=== PATIENT | female | born 1980 | race Hispanic/Latino ===

== ENCOUNTER 2016-07-20 18:53 | Emergency (ER) | payer OTHER ==
[~2016-07-20 18:53] MED LIST: NAPROSYN 500 M500 MG PO; NORFLEX100 MG PO; ROBITUSSIN W/CO10 ML PO; ZITHROMAX Z-PA250 M1 PO
--- NOTE | 2016-07-20 20:21 | ED HEADACHE COMPLAINT ---
History of Present Illness General Chief Complaint: Headache Stated Complaint: "I HAVE A REALLY BAD HEADACHE" Source: patient Exam Limitations: no limitations Vital Signs & Intake/Output Vital Signs & Intake/Output Vital Signs Date Time Temp Pulse Resp B/P Pulse O2 O2 Flow FiO2 Ox Delivery Rate 07/20 2050 97.2 80 20 115/68 96 Room Air 07/21 1915 97.6 79 22 117/71 97 Room Air Allergies Coded Allergies: MDX - Sulfamethoxazole (From BACTRIM) (Intermediate, RASH 05/03/14) MDX - Trimethoprim (From BACTRIM) (Intermediate, RASH 05/03/14) MDX - Pseudoephedrine (From SUDAFED 12 HOUR) (Mild, RASH 12/31/12) MDX - PCN (penicillin) (PCN (PENICILLIN)) (RASH 11/07/11) Reconcile Medications Azithromycin (Zithromax Z-Lamonte) 250 MG CAP 1 DP PO AD . 2 the first day followed by 1 for days 2-5 Butalb/Acetaminophen/Caffeine (Fioricet 50-300-40 MG Capsule) 50 MG-300 MG-40 MG CAPSULE 1 TAB PO TID PRN MIGRAINE Ketorolac Tromethamine 10 MG TABLET 1 TAB PO TID PRN MIGRAINE Naproxen (Naprosyn) 250 MG TABLET 1 TAB PO BID PRN NECK PAIN Orphenadrine Citrate (Norflex) [address] 1 TAB PO BID PRN NECK PAIN/SPASMS Robitussin AC (Guaifenesin-Codeine Syrup) 200 MG-20 MG/10 ML LIQUID 10 ML PO Q6HR PRN COUGH Triage Note: PER PT LOPEZ SINCE LAST NIGHT TOOK TYLENOL ES AND 3 ALLEVE LAST AT 1730 WITHOUT EFFECT. LMP 07/04/16 HAD A MISSCARRIAGE AT THAT TIME Triage Nurses Notes Reviewed? yes Onset: Gradual Duration: waxing and waning Timing: recent history Severity Numbers: 7 Head Injury Location: temporal : No Patient currently breastfeeds: No HPI: Patient is a 35-year-old female with a past medical history of migraine headaches who presents to emergency room with concerns of a gradual onset of waxing and waning right-sided temporal migraines on relief with multiple doses of Tylenol and Aleve. Patient denies any acute onset or thunderclap headache denies any worse headache of life. Denies any fever chills. Patient does have mild nausea however can't tolerate by mouth and photophobia. Patient was requesting a neurologist (KASSIDY DUMONT) Past History Travel History Traveled to [place] past 21 day No Medical History Any Pertinent Medical History? see below for history Neurological: MIGRAINES EENT: NONE Cardiovascular: NONE Respiratory: asthma Gastrointestinal: NONE Hepatic: NONE Renal: NONE Musculoskeletal: NONE Psychiatric: depression Endocrine: NONE Blood Disorders: NONE Cancer(s): NONE [employer] AP[employer]ENTICE/Reproductive: NONE Surgical History Surgical History: non-contributory Psychosocial History What is your primary language Senegalese Tobacco Use: Never used Family History Hx Contributory? No (KASSIDY DUMONT) Review of Systems Review of Systems Constitutional: Reports: no symptoms. Eyes: Reports: see HPI, photophobia. Ears, Nose, Throat, Mouth: Reports: no symptoms. Respiratory: Reports: no symptoms. Cardiovascular: Reports: no symptoms. Gastrointestinal/Abdominal: Reports: see HPI, nausea. Genitourinary: Reports: no symptoms. Musculoskeletal: Reports: no symptoms. Skin: Reports: no symptoms. Neurological/Psychological: Reports: see HPI, headache. Hematologic/Endocrine: Reports: no symptoms. Endocrine: Reports: no symptoms. Immunologic/Allergic: Reports: no symptoms. All Other Systems: Reviewed and Negative (KASSIDY DUMONT) Physical Exam Physical Exam General Appearance: no apparent distress, alert, comfortable Cranial Nerves: normal hearing, normal speech, PERRL Comments: Well-developed well-nourished person in no acute distress HEENT: Normal EENT exam, extraocular motion intact, no nystagmus. Pupils equally round and reactive to light and accommodation. Nose is atraumatic. External auditory canal and Tympanic membranes clear. Pharynx normal. No swelling or edema. Neck: Supple, no lymphadenopathy, normal range of motion without pain or tenderness Back: Nontender, no CVA tenderness. Cardiovascular: Regular rate and rhythms no murmurs rubs or gallops, normal JVP Respiratory: Chest nontender. No respiratory distress.breath sounds clear to auscultation bilaterally Abdomen: Soft, nontender nondistended, no appreciable organomegaly. Normal bowel sounds. No ascites Extremity: No edema, no calf tenderness to palpation, normal and equal pulses. Neuro: Alert oriented x3, motor sensory normal, cranial nerves II through XII grossly intact. Skin: No appreciable rash on exposed skin, skin is warm and dry. Psych: Mood and affect is normal, memory and judgment is normal. Core Measures Severe Sepsis Present: No Septic Shock Present: No (KASSIDY DUMONT) Progress Differential Diagnosis: carotid dissection, cav sinus thromb, cluster LOPEZ, encephalitis, IC mass/tumor, intracranial Hem., meningitis, migraine LOPEZ, musculoskeletal pain, post LP headache, sinusitis, SSS thrombosis, subarach. Hem., tension LOPEZ, temporal arteritis, TMJ syndrome, viral cephalgia Plan of Care: Current Medications Sig/Neeraj Start time Last Medication Dose Stop Time Status Admin Ketorolac 30 MG ONCE ONE 07/20 2044 UNVr Tromethamine 07/20 2045 (Toradol) Patient currently is in no apparent distress. Patient denies any symptoms of subarachnoid hemorrhage. Patient upon discharge had normal steady gait Patient was strongly advised to follow up with neurologist (KASSIDY DUMONT) Departure Departure Disposition: HOME OR SELF CARE Condition: Stable Clinical Impression Primary Impression: Migraine Referrals: JOSSY MANZO,ZULEIMA NAM APRN (PCP/Family) Additional Instructions: As discussed begin drinking plain water for hydration. Begin the prescription of Toradol for migraine and begin the prescription of Fioricet for breakthrough headache relief. Follow-up this week and established neurologist Dr. Mejia for further ventilation treatment. If symptoms worsen return to emergency room. Prescriptions are waiting Departure Forms: Customer Survey General Discharge Information Prescriptions: Current Visit Scripts Butalb/Acetaminophen/Caffeine (Fioricet 50-300-40 MG Capsule) 1 TAB PO TID PRN MIGRAINE #15 TAB Ketorolac Tromethamine 1 TAB PO TID PRN MIGRAINE #15 TAB (KASSIDY DUMONT) PA/[employer] Co-Sign Statement Statement: ED Attending supervision documentation- [] I saw and evaluated the patient. I have also reviewed all the pertinent lab results and diagnostic results. I agree with the findings and the plan of care as documented in the PA's[employer]'s documentation. [X] I have reviewed the ED Record and agree with the PA's/[employer]'s documentation. [] Additions or exceptions (if any) to the PAs/[employer]'s note and plan are summarized below: [] (SIMONE MANZO,YEE New)
[2016-07-20] MEDS ORDERED: KETOROLAC TROME10 M1 PO (20:36)
[2016-07-20] MEDS ORDERED: FIORICET 50-301 EACH PO (20:36)
[2016-07-20 20:51] VITALS: BP 115/68
== END 2016-07-20 21:05 ==
LOC: ERH 18:53
DX: G43.909 Migraine, unspecified, not intractable, without status migrainosus (principal)
CPT/HCPCS: 96372; J1885